=== PATIENT | male | born 1990 | race Caucasian/White ===

== ENCOUNTER → 2017-12-14 22:21 | Outpatient (CLI) | payer BC, SELFPAY | LOC: SL 22:21 | PROVIDERS: Family Provider Family Medicine; PCP Family Medicine; Visit Provider Family Medicine | DX: G47.33 Obstructive sleep apnea (adult) (pediatric) (principal) | CPT/HCPCS: 95811 ==

== ENCOUNTER 2018-11-28 19:00 | Emergency (ER) | payer OTHER, SELFPAY ==
[2018-11-28 19:01] VITALS: BP 136/94; PULSE 96; RESP 16; TEMP 36.2; O2SAT 97; BMI 37.3
--- NOTE | 2018-11-28 19:17 | US_ITS ---
STUDY: VENOUS DOPPLER ULTRASOUND - LEFT LOWER EXTREMITY REASON FOR EXAM: Male, 28 years old. Lump left lateral calf TECHNIQUE: Ultrasound evaluation of the deep vein system to include king-scale imaging and compression was performed. King-scale imaging and Doppler sonographic evaluation, including duplex spectral analysis and qualitative color flow sonography, was performed. COMPARISON: None. FINDINGS: Common Femoral Vein: Normal compression, spontaneity and augmentation. Normal color Doppler. Common Femoral Vein/Greater Saphenous Junction: Normal compression, spontaneity and augmentation. Normal color Doppler. Deep Femoral Vein: Normal compression, spontaneity and augmentation. Normal color Doppler. Femoral Proximal: Normal compression, spontaneity and augmentation. Normal color Doppler. Femoral Middle: Normal compression, spontaneity and augmentation. Normal color Doppler. Femoral Distal: Normal compression, spontaneity and augmentation. Normal color Doppler. Popliteal Vein: Normal compression, spontaneity and augmentation. Normal color Doppler. Posterior Tibial Vein: Normal compression, spontaneity and augmentation. Normal color Doppler. Peroneal Vein: Normal compression, spontaneity and augmentation. Normal color Doppler. US/Venous Duplex Imag/Limited/Uni IMPRESSION: Normal venous Doppler ultrasound of the lower extremity. Electronically Signed: Ho Prieto MD at 20:18 EST , Service support ,
--- NOTE | 2018-11-28 20:02 | ED.VISSUMM ---
- ER Visit Summary Date of Service: 11/28/18 Chief Complaint: Left calf pain History of Present Illness: The patient is a 28 M presenting for evaluation secondary to left calf pain. Patient reports that he woke up today and noticed pain in his lateral left calf and he felt as if there was a linear bulging in that area. Pain seemed to get better throughout the course of the day. Patient denies that he had any chest pain shortness of breath hemoptysis. He denies any personal history of DVT or PE. 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 Patient's PCP was concerned for the possibility DVT so he was sent to the emergency department. Physical Examination: Physical exam unremarkable except for lower extremity exam. Patient has 2+ DP and PT pulses that are bilaterally symmetric. Soft compartments throughout the legs, no evidence of swelling or palpable cord. Normal range of motion at the hip knee ankle and foot normal sensation over all dermatomes. No appreciable swelling on my exam. Test Results: Left leg duplex ultrasound is negative Emergency Department Course and Treatment: Patient presented secondary to left leg pain. Ultrasound was found to be negative. He has a normal exam, no skin changes, no muscular changes, not concern for infection injury vascular etiology or other serious problem that would require further workup. Patient was recommended conservative treatment and follow-up with primary care as needed. Disposition: Discharge Impression: 1. Left calf pain This note was generated with [employer] dictation software. It may contain incorrect words, spelling, and punctuation that were not noted in review of the chart prior to signing ED Disposition - Plan for ED Patient: Disposition: Home or Assisted Living Diagnosis: Pain of left calf Instructions: ED Leg Swelling Unilateral Referrals: Beto Ferrer MD [Primary Care Provider] - As Needed
[2018-11-28 20:03] VITALS: BP 146/89; PULSE 77; RESP 18; O2SAT 97
--- NOTE | 2018-11-28 20:05 | ED.DCSUM_ITS ---
- ER Visit Summary Date of Service: 11/28/18 Chief Complaint: Left calf pain History of Present Illness: The patient is a 28 M presenting for evaluation secondary to left calf pain. Patient reports that he woke up today and noticed pain in his lateral left calf and he felt as if there was a linear bulging in that area. Pain seemed to get better throughout the course of the day. Patient denies that he had any chest pain shortness of breath hemoptysis. He denies any personal history of DVT or PE. 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 Patient's PCP was concerned for the possibility DVT so he was sent to the emergency department. Physical Examination: Physical exam unremarkable except for lower extremity exam. Patient has 2+ DP and PT pulses that are bilaterally symmetric. Soft compartments throughout the legs, no evidence of swelling or palpable cord. Normal range of motion at the hip knee ankle and foot normal sensation over all dermatomes. No appreciable swelling on my exam. Test Results: Left leg duplex ultrasound is negative Emergency Department Course and Treatment: Patient presented secondary to left leg pain. Ultrasound was found to be negative. He has a normal exam, no skin changes, no muscular changes, not concern for infection injury vascular etiology or other serious problem that would require further workup. Patient was recommended conservative treatment and follow-up with primary care as needed. Disposition: Discharge Impression: 1. Left calf pain This note was generated with [employer] dictation software. It may contain incorrect words, spelling, and punctuation that were not noted in review of the chart prior to signing ED Disposition - Plan for ED Patient: Disposition: Home or Assisted Living Diagnosis: Pain of left calf Instructions: ED Leg Swelling Unilateral Referrals: Beto Ferrer MD [Primary Care Provider] - As Needed
== END 2018-11-28 20:10 | disposition home or self-care (01) ==
PROVIDERS: Emergency Provider Emergency Medicine; Family Provider Family Medicine; PCP Family Medicine
DX: M79.662 Pain in left lower leg (principal)
CPT/HCPCS: 93971; 99282

== ENCOUNTER 2019-01-03 01:42 | Emergency (ER) | payer OTHER, SELFPAY ==
[2019-01-03 01:43] VITALS: BP 167/96; PULSE 100; RESP 18; TEMP 36.6; O2SAT 97; BMI 37.2
[2019-01-03 01:48] VITALS: RESP 18
--- NOTE | 2019-01-03 01:55 | RAD_ITS ---
STUDY: X-RAY CHEST REASON FOR EXAM: Male, 28 years old. Cough TECHNIQUE: Frontal and lateral views of the chest. COMPARISON: None. FINDINGS: The lungs are clear and expanded. There is no demonstrated pleural abnormality. Normal size heart. Normal mediastinum and durga. Normal visualized pulmonary arteries. Normal visualized aortic arch and descending thoracic aorta. Normal visualized thoracic spine. Normal visualized ribs, clavicles, and shoulders. There is no demonstrated abnormality of the visualized soft tissue structures of the upper abdomen. RAD/Chest PA and Lateral IMPRESSION: Normal x-ray examination of the chest. Electronically Signed: Rickey Urias MD at 2:49 EST Tel , Service support ,
--- NOTE | 2019-01-03 01:56 | ED.DCSUM_ITS ---
- ER Visit Summary Date of Service: 01/03/19 Chief Complaint: [] History of Present Illness: The patient is a 28 M [] Physical Examination: [] Test Results: [] Emergency Department Course and Treatment: [] Treatment Plan: [] Disposition: [] Impression: [] This note was generated with [employer] dictation software. It may contain incorrect words, spelling, and punctuation that were not noted in review of the chart prior to signing ED Disposition - Plan for ED Patient: Referrals: Beto Ferrer MD [Primary Care Provider] -
--- NOTE | 2019-01-03 01:56 | EKG12_ITS ---
Test Reason : GEN ILLNESS Blood Pressure : / mmHG Vent. Rate : 091 BPM Atrial Rate : 091 BPM P-R Int : 178 ms QRS Dur : 098 ms QT Int : 346 ms P-R-T Axes : 045 019 026 degrees QTc Int : 425 ms Normal sinus rhythm Nonspecific T wave abnormality Abnormal ECG Confirmed by JERALD JASSO, CHRISTEL ([id number]), general expeditor GUSTAVO CORREA ([id number]) on 01/08/2019 9:06:07 AM Referred By: KIM Confirmed By:CHRISTEL MARQUES MD
--- NOTE | 2019-01-03 01:56 | ED.VIS.GEN ---
History of Present Illness Chief Complaint: General Illness Informant: Patient Narrative: Patient stated that he developed upper respiratory symptoms a few days ago. Gradual onset. He was seen by nurse practitioner and told it was viral in nature. He has been using Sudafed but none today. He had a mild cough. He felt some vertigo tonight. It resolved. He had dizziness and felt like the room was spinning. He had nausea and vomited 3 times. He felt some pressure in his chest tonight. He is unsure if that is from a bronchitis or potential pneumonia. He does not smoke cigarettes. Current severity is mild. Maximum severity is mild. Worsened by his cough. He is on no antibiotics. Timing is intermittent. Prior symptoms are no. Recent illnesses no. Past Medical History - Allergies and Home Meds Allergies/Adverse Reactions: Allergies No Known Allergies Allergy (Verified 11/28/18 19:01) Primary Care Physician: Beto Ferrer MD [Primary Care Provider] - Prior records reviewed: Yes Past Medical History: None Surgical History: no surgical history Lives: With Family Smoking Status: Never smoker Alcohol: None Drugs: None Review of Systems General: Denies: Chills, Fever, Sweats Eyes: Denies: Visual changes - bilaterally, Diplopia ENT: Reports: Rhinorrhea. Denies: Sore throat Cardiovascular: Reports: Chest pain. Denies: Palpitations Respiratory: Reports: Cough. Denies: Dyspnea, Dyspnea on exertion Gastrointestinal: Reports: Nausea, Vomiting. Denies: Abdominal pain, Diarrhea, Melena, Hematochezia Genitourinary: Denies: Dysuria, Hematuria, Frequency Musculoskeletal: Denies: Back pain, Extremity Pain Skin: Denies: Rash, Wounds Neurological: Denies: Headache, Weakness, Numbness Physical Exam Vital Signs/Narrative: Vital Signs Temp Pulse Resp BP Pulse Ox 01/03/19 01:43 98 F 100 18 167/96 H 97 Inital Vital Signs reviewed: Yes General: Well nourished, Well developed, No Acute Distress Head: Normocephalic, Atraumatic Eyes: Perrl, EOMI ENT: Moist mucous membranes, No rhinorrhea Neck: Supple, Nontender Cardiovascular: Regular rate, Regular rhythm, No murmurs Respiratory: No distress, CTA bilaterally, Chest nontender Abdomen: Soft, Nontender, Nondistended, Normal bowel sounds Back: Nontender, Normal Inspection Extremities: Nontender, No edema Skin: Normal color, No rash Neurological: Alert, Oriented x3, Cranial nerves II-XII grossly intact, Normal Strength, Normal Sensation Psychological: Normal affect, Normal Mood Diagnostic/Tx/Re-eval - EKG Initial EKG Interpretation: Sinus Rhythm, - - nonspecific T wave abnormality inversion in inferior lead III only. No other acute ischemic findings - Medical Decision Making Chest x-ray obtained shows normal heart lungs chest and mediastinum without acute infiltrate. Blood sugar within normal limits. Patient's vertigo has resolved. He will use [id number] Antivert if it comes back. I think this is likely positional vertigo. I do not think his chest discomfort is anything significant. Is likely related to his bronchitis. He will continue symptomatic management for this. He will follow-up as an outpatient. ED Disposition - Plan for ED Patient: Diagnosis: Acute bronchitis, Vertigo Instructions: ED Vertigo Unspecified Referrals: Beto Ferrer MD [Primary Care Provider] - Additional Instructions: Use [id number] Antivert as needed for vertigo
[2019-01-03 02:20] LABS: Bedside Glucose 119 mg/dL (70-110)
[2019-01-03 02:44] VITALS: BP 160/100; PULSE 99; RESP 18; O2SAT 99
== END 2019-01-03 03:00 | disposition home or self-care (01) ==
PROVIDERS: Emergency Provider Emergency Medicine; Family Provider Family Medicine; PCP Family Medicine
DX: J20.9 Acute bronchitis, unspecified (principal); R42 Dizziness and giddiness
CPT/HCPCS: 71046; 82962; 93005; 99283

== ENCOUNTER 2019-03-29 02:03 | Emergency (ER) | payer OTHER, SELFPAY ==
[2019-03-29 02:05] VITALS: BP 177/112; PULSE 72; RESP 20; TEMP 36.8; O2SAT 97; BMI 36.3
--- NOTE | 2019-03-29 02:16 | CT_ITS ---
HISTORY: THOMAS POSTERIOR SINCE 1930, NUMBNESS TO LEFT SIDE OF FACE-RESOLVED NOW, HX MIGRAINES, HTN EXAMINATION: CTA Head WO/W Contrast TECHNIQUE: Routine [place]/brain CT angiogram protocol was performed following IV contrast. 3D reconstructions were reviewed. A radiation dose optimization technique was used for this scan. IV Contrast dosage and agent: 100ML Isovue 300 COMPARISON: None FINDINGS: Initial noncontrast cranial CT performed. Normal ventricles. Prominent cerebral sulci for age. No intracranial mass, hemorrhage, or acute parenchymal abnormality seen. Posterior fossa structures appear normal. No suspicious extra-axial fluid collection. As visualized, and the mastoids and paranasal sinuses appear clear. CTA exam performed. Dominant right vertebral artery. Normal contrast filling of the anterior, middle, and posterior cerebral arteries bilaterally. No intracranial aneurysm, vascular malformation, or vascular occlusion. No significant vessel narrowing. No arterial dissection. CT/CTA Head W/WO Contrast IMPRESSION: Normal CTA brain and [place]. No aneurysm, arterial dissection, or other significant findings. Individualized dose optimization techniques were used for this CT. at 0356 Reported and signed by: Kwadwo Mcpherson MD Electronically Signed: Kwadwo Mcpherson, at 3:55 EDT Tel , Service support ,
--- NOTE | 2019-03-29 02:16 | CT_ITS ---
HISTORY: THOMAS POSTERIOR SINCE 1930, NUMBNESS TO LEFT SIDE OF FACE-RESOLVED NOW, HX MIGRAINES, HTN EXAMINATION: CTA Neck WO/W Contrast TECHNIQUE: Routine carotid CT angiogram protocol was performed without and with IV contrast. [place] criteria using the distal ICAs for comparison were used for evaluation of stenoses. 3D reconstructions were reviewed. A radiation dose optimization technique was used for this scan. IV Contrast dosage and agent: 100ML Isovue 300 COMPARISON: None FINDINGS: AORTIC ARCH AND BRANCHES: Normal anatomy, patent. RIGHT CCA: No occlusion, significant stenosis or dissection. RIGHT ICA: No occlusion, significant stenosis or dissection. LEFT CCA: No occlusion, significant stenosis or dissection. LEFT ICA: No occlusion, significant stenosis or dissection. RIGHT VERTEBRAL ARTERY: No occlusion, significant stenosis or dissection. The right vertebral artery is dominant. LEFT VERTEBRAL ARTERY: No occlusion, significant stenosis or dissection. CT/CTA Neck W/WO Contrast IMPRESSION: 1. Normal CTA bilateral carotids. No carotid dissection or other abnormality seen. 2. Bilateral patency of the vertebral arteries with the right vertebral artery dominant. Individualized dose optimization techniques were used for this CT. at 0400 Reported and signed by: Kwadwo Mcpherson MD Electronically Signed: Kwadwo Mcpherson, at 3:58 EDT Tel , Service support ,
--- NOTE | 2019-03-29 02:19 | ED.DCSUM_ITS ---
- ER Visit Summary Date of Service: 03/29/19 Chief Complaint: Headache History of Present Illness: The patient is a 29 M presenting with headache. Patient states that this has been ongoing for the past several hours. This was gradual in onset and has been intermittent. He denies trauma. He tried no medi cation at home. He has a history of headaches in the past but this is worse than usual. He has nausea with no vomiting. He denies fever. Denies other complaints. Physical Examination: Vitals are stable. Blood pressure 177/112. Patient is afebrile. Alert no acute distress. HEENT exam is unremarkable. Neck is supple. No meningismus Lungs are clear and equal bilaterally. Heart is regular rate and rhythm. Abdomen is soft nontender nondistended. Extremities are unremarkable. Skin is warm and dry. No focal neurologic deficit. Remainder of exam is unremarkable. Emergency Department Course and Treatment: Patient was given Reglan, Benadryl IV. CTA head shows normal CTA brain and [place]. No aneurysm, arterial dissection, or other significant findings. CTA neck shows normal CTA bilateral carotids. No carotid dissection or other abnormality seen. Bilateral patency of the vertebral arteries with the right vertebral artery dominant. On reevaluation patient continues to have headache but feels improved. He is given Toradol IV. Repeat blood pressure is 174/108. Patient given clonidine p.o. He states that he has been monitoring his blood pressure and trying to control it with diet. He states he has been checking it at home and it has been running normal. Repeat blood pressure is 148/94. On reevaluation, patient is feeling improved. He is advised to record his blood pressures and follow closely with his primary care physician. Patient is agreeable with this plan. Advised return to ED for worsening complaints. Disposition: Discharge home Impression: Headache This note was generated with [employer] dictation software. It may contain incorrect words, spelling, and punctuation that were not noted in review of the chart prior to signing ED Disposition - Plan for ED Patient: Instructions: ED Headache Tension Referrals: Beto Ferrer MD [Primary Care Provider] -
[2019-03-29] MEDS: DiphenhydrAMINE 50 MG/ML Syringe 25 MG IV (02:23)
[2019-03-29] MEDS: Metoclopramide 10 MG/2 ML Vial 5 MG IV (02:23)
--- NOTE | 2019-03-29 04:20 | ED.DEP ---
ED Disposition - Plan for ED Patient: Instructions: ED Headache Tension Referrals: Beto Ferrer MD [Primary Care Provider] -
[2019-03-29] MEDS: Ketorolac 30 MG/ML Syringe IV (04:28)
[2019-03-29 04:40] VITALS: BP 174/108; PULSE 79; RESP 18; O2SAT 97
[2019-03-29] MEDS: cloNIDine HCl 0.1 MG Tablet 0.2 MG PO (04:46)
[2019-03-29 05:26] VITALS: BP 148/96
[2019-03-29 05:38] VITALS: BP 148/96; PULSE 79; RESP 16; O2SAT 96
== END 2019-03-29 05:49 | disposition home or self-care (01) ==
PROVIDERS: Emergency Provider Emergency Medicine; Family Provider Family Medicine; PCP Family Medicine
DX: R51 Headache (principal)
CPT/HCPCS: 70496; 70498; 96374; 96375; 99283; Q9967; A4216

== ENCOUNTER 2020-05-10 20:40 | Emergency (ER) | payer OTHER, SELFPAY ==
[2020-05-10 20:41] VITALS: BP 150/95; PULSE 64; RESP 15; TEMP 36; O2SAT 98; BMI 36.1
--- NOTE | 2020-05-10 20:57 | ED.VIS.GEN ---
History of Present Illness Chief Complaint: Bite Informant: Patient Narrative: The 10-year-old male presents with tick attached to the left side of his neck and his fernandez. He states that only been there for a few hours today it was not noticed earlier. He does not have any symptoms that are systemic. He has no rash. He states it is not painful. Past Medical History - Allergies and Home Meds Allergies/Adverse Reactions: Allergies No Known Allergies Allergy (Verified 05/10/20 20:43) Primary Care Physician: Beto Ferrer MD [Primary Care Provider] - Prior records reviewed: Yes Surgical History: no surgical history Lives: With Family Smoking Status: Never smoker Alcohol: None Drugs: None Review of Systems General: Denies: Chills, Fever, Sweats Eyes: Denies: Visual changes - bilaterally, Diplopia ENT: Denies: Rhinorrhea, Sore throat Cardiovascular: Denies: Chest pain, Palpitations Gastrointestinal: Denies: Abdominal pain, Nausea, Vomiting, Diarrhea, Melena, Hematochezia Musculoskeletal: Denies: Back pain, Extremity Pain Skin: Reports: - - Tick attached to the left side of neck Neurological: Denies: Headache Allergy: Denies: Uticaria Physical Exam Vital Signs/Narrative: Vital Signs Temp Pulse Resp BP Pulse Ox 05/10/20 20:41 96.8 F L 64 15 150/95 H 98 Inital Vital Signs reviewed: Yes General: Well nourished, Well developed, No Acute Distress Head: Normocephalic, Atraumatic Eyes: Perrl Cardiovascular: Regular rate, Regular rhythm Respiratory: No distress, CTA bilaterally Skin: - - Small tick attached to left side of neck in fernandez line. No surrounding erythema or induration. Nontender to palpation. Neurological: Alert, Oriented x3 Psychological: Normal affect Diagnostic/Tx/Re-eval - Medical Decision Making Patient presents with a tick attached to his neck. It is only been there for a few hours. He does not need antibiotics. Seizure note: Forceps were used to grasp the tick at its attachment to the neck/skin. Gentle pressure was applied and tick was removed in its entirety. Area was then cleaned by nursing staff. There is no bleeding. Patient tolerated procedure well ED Disposition - Plan for ED Patient: Disposition: Home or Assisted Living Diagnosis: Tick bite Instructions: ED Facts Tick, ED Bite Tick No Abx Tx Referrals: Beto Ferrer MD [Primary Care Provider] -
== END 2020-05-10 21:14 | disposition home or self-care (01) ==
PROVIDERS: Emergency Provider Student in an Organized Health Care Education/Training Program; PCP Family Medicine
DX: S10.96XA Insect bite of unspecified part of neck, initial encounter (principal); W57.XXXA Bitten or stung by nonvenomous insect and other nonvenomous arthropods, initial encounter; Y93.9 Activity, unspecified; Y92.9 Unspecified place or not applicable
CPT/HCPCS: 99282

== ENCOUNTER 2020-05-17 18:29 | Emergency (ER) | payer OTHER, SELFPAY ==
[2020-05-17 18:31] VITALS: BP 172/92; PULSE 71; RESP 15; TEMP 36.6; O2SAT 97; BMI 37.3
--- NOTE | 2020-05-17 18:41 | ED.DCSUM_ITS ---
- ER Visit Summary Date of Service: 05/17/20 Chief Complaint: [Injury to left foot] History of Present Illness: The patient is a 30 M [presents to the emergency department complaint of injury to his left foot. Patient states that he dropped a sledgehammer on it while at work. Patient states that he supposed to wear steel toed shoes but did not. He does not want to file this under workman's comp. Patient states that he thought it was getting better but then started having more pain over the last couple of days. His mother thought the toe looked red and swollen and was concerned about infection so advised and seek treatment. He denies any fevers.] Physical Examination: [HEENT-PERRLA, EOMI. Cranial nerves II through XII grossly intact. TMs clear. Mucous membranes moist. No adenopathy. Cardiovascular-regular rate and rhythm without murmur or ectopy Lungs-clear to auscultation, chest wall stable without crepitus or subcu emphysema Abdomen-normoactive bowel sounds, soft, nontender, no rebound or rigidity, no peritoneal signs. Extremities-intact ?4, normal range of motion, normal pulses. Left great toe- patient does have some soft tissue swelling noted some erythema the skin of the toe. He is got some dried blood at the distal edge of the nail where it meets the skin. The nail itself appears pale and appears to be somewhat loose on the nailbed. Diffuse tenderness over the distal phalanx.] Test Results: [X-rays of the left foot obtained showed no fractures or dislocations as interpreted by myself.] Emergency Department Course and Treatment: [Was started on Keflex and Bactrim p.o.] Treatment Plan: [We will be treated with Keflex and Bactrim for his cellulitis of the left great toe. Patient advised to follow-up with primary care physician for wound check in 3 to 5 days. Patient advised to return if increasing pain, redness, swelling, or condition should worsen anyway.] Disposition: [Discharged home in stable condition] Impression: [Contusion left great toe Cellulitis left great toe] This note was generated with [employer] dictation software. It may contain incorrect words, spelling, and punctuation that were not noted in review of the chart prior to signing ED Disposition - Plan for ED Patient: Referrals: Beto Ferrer MD [Primary Care Provider] -
--- NOTE | 2020-05-17 19:18 | RAD_ITS ---
STUDY: X-RAY - LEFT FOOT CLINICAL: Male, 30 years old. Sledgehammer dropped on left great toe 5-6 days ago. Pain and bruising. TECHNIQUE: 3 view(s) of the foot. COMPARISON: None. FINDINGS: Normal talus, calcaneus, and tarsal bones. Normal visualized subtalar, talonavicular, calcaneocuboid, tarsal and tarsometatarsal articulations. Normal metatarsi. Normal metatarsophalangeal joint of the great toe. Normal tibial and fibular sesamoid bones. Normal interphalangeal joint of the great toe. Normal second through fifth metatarsophalangeal joints. Normal interphalangeal joints and phalanges of the lesser toes. There is 2 mm linear bony density adjacent to the distal phalanx of the great toe. There is soft tissue edema. RAD/Foot min 3 Views IMPRESSION: 2 mm new or old avulsion fracture from the distal phalanx of the great toe, soft tissue edema Electronically Signed: Serafin Fung, at 19:53 EDT Tel , Service support ,
--- NOTE | 2020-05-17 19:45 | ED.DEP ---
ED Disposition - Plan for ED Patient: Instructions: ED FOOT CONTUSION, ED Cellulitis Prescriptions: Smz/Tmp Ds [Bactrim Ds] 1 tab PO BID #20 tab Prescription Printed Cephalexin [Keflex] 500 mg PO Q6 #40 cap Prescription Printed Referrals: Beto Ferrer MD [Primary Care Provider] - 3-5 Days
[2020-05-17] MEDS: Cephalexin 250 MG Capsule 500 MG PO (19:53)
[2020-05-17] MEDS: Smz/Tmp Ds Tablet 1 TABLET PO (19:53)
== END 2020-05-17 19:56 | disposition home or self-care (01) ==
LOC: ED 19:03
PROVIDERS: Emergency Provider Emergency Medicine; PCP Family Medicine
DX: S90.112A Contusion of left great toe without damage to nail, initial encounter (principal); W22.8XXA Striking against or struck by other objects, initial encounter; Y93.9 Activity, unspecified; Y92.9 Unspecified place or not applicable; Y99.0 Civilian activity done for income or pay; L03.032 Cellulitis of left toe
CPT/HCPCS: 73630; 99283

== ENCOUNTER 2020-07-03 14:13 | Emergency (ER) | payer OTHER, SELFPAY ==
[2020-07-03 14:14] VITALS: BP 157/94; PULSE 90; RESP 16; TEMP 36.4; O2SAT 98; BMI 36.8
--- NOTE | 2020-07-03 14:29 | ED.DCSUM_ITS ---
History of Present Illness Informant: Patient, Family Onset: Weeks - 1week Context: Gradual Onset Timing: Continuous Quality: bump Location: scalp Current Severity: Mild Maximum Severity: Mild Worsened by: nothing Relieved by: nothing Associated Symptoms: denies Narrative: 30-year-old male presents with concern he is a tick stuck in his scalp. He states that a week ago he was outside working came inside and noticed the tick was stuck in his head so he pulled it off he had thought he had remove the entire tick but today he noticed a spot in that same area where he feels the tick is still in place. Patient has not had any swelling of his hand rash or fevers he has no constitutional symptoms he has no upper respiratory symptoms or vomiting or diarrhea rest review of systems negative Prior similar symptoms: No Recent Illness/Hospitalization: No <Romie Tomlinson - Last Filed: 07/03/20 14:48> <Adams Johnson - Last Filed: 07/03/20 15:02> Chief Complaint: Foreign Body Past Medical History Prior records reviewed: Yes Past Medical History: None Surgical History: no surgical history Lives: With Family Smoking Status: Never smoker Alcohol: Occasional Drugs: None <Romie Tomlinson - Last Filed: 07/03/20 14:48> <Adams Johnson - Last Filed: 07/03/20 15:02> - Allergies and Home Meds Allergies/Adverse Reactions: Allergies No Known Allergies Allergy (Verified 07/03/20 14:16) Primary Care Physician: Beto Ferrer MD [Primary Care Provider] - Review of Systems General: Denies: Chills, Fever, Sweats Eyes: Denies: Visual changes - bilaterally, Diplopia ENT: Denies: Rhinorrhea, Sore throat Cardiovascular: Denies: Chest pain, Palpitations Respiratory: Denies: Dyspnea, Cough, Dyspnea on exertion Gastrointestinal: Denies: Abdominal pain, Nausea, Vomiting, Diarrhea, Melena, Hematochezia Genitourinary: Denies: Dysuria, Hematuria, Frequency Musculoskeletal: Denies: Back pain, Extremity Pain Skin: Reports: Wounds. Denies: Rash, Abscess Neurological: Denies: Headache, Weakness, Numbness <Romie Tomlinson - Last Filed: 07/03/20 14:48> Physical Exam Vital Signs/Narrative: Vital Signs Temp Pulse Resp BP Pulse Ox 07/03/20 14:14 97.6 F L 90 16 157/94 H 98 Inital Vital Signs reviewed: Yes General: Well nourished, Well developed, No Acute Distress Head: Normocephalic, Atraumatic Eyes: Perrl, EOMI ENT: Moist mucous membranes, No rhinorrhea Neck: Supple, Nontender Cardiovascular: Regular rate, Regular rhythm, No murmurs Respiratory: No distress, CTA bilaterally, Chest nontender Abdomen: Soft, Nontender, Nondistended, Normal bowel sounds Back: Nontender, Normal Inspection Extremities: Nontender, No edema Skin: Normal color, No rash, No Trauma, - - Patient has 1 spot on the top of his head occipital area that is a abrasion versus a possible tick there is no surrounding signs of swelling redness or infection Neurological: Alert, Oriented x3, Cranial nerves II-XII grossly intact, Normal Strength, Normal Sensation Psychological: Normal affect, Normal Mood <Romie Tomlinson - Last Filed: 07/03/20 14:48> Vital Signs/Narrative: Vital Signs Temp Pulse Resp BP Pulse Ox 07/03/20 14:54 81 18 152/91 H 96 07/03/20 14:14 97.6 F L 90 16 157/94 H 98 <Adams Johsnon - Last Filed: 07/03/20 15:02> Diagnostic/Tx/Re-eval - Medical Decision Making The area that the patient was concerned was a tick was removed easily there is possibly a small amount of the tick remaining in the scab but no further areas left in the scalp there are no signs of infection patient has no constitutional symptoms he has no symptoms of Lyme disease that is his concern at this time will place on doxycycline and have him follow-up with his doctor in 2 days <Romie Tomlinson - Last Filed: 07/03/20 14:48> - Medical Decision Making Patient was seen with me. I did a [id number] examination with the patient. Patient presents for possible tick bite to his scalp. Patient states he is unsure if he has a tick in his scalp. Patient states he has had several ticks removed from his scalp over the past year. Patient denies any fevers or chills. Patient denies any redness or swelling. Patient denies any headaches. Vital signs are stable. Patient is afebrile. Patient is in no acute distress. Skin is warm and dry. There is no foreign body noted. There is no erythema noted. There is no discharge or drainage. There is no bleeding noted. There is minimal tenderness. Cranial nerves II through XII are intact. There are no focal motor or sensory deficits noted. The possible foreign body was removed. There is no foreign body noted in the scalp at this time. Patient was instructed to keep the area clean and dry. Patient was instructed to follow-up with his primary care physician in 5 to 7 days. Patient understood and was agreeable with the plan. All questions were answered. <Adams Johnson - Last Filed: 07/03/20 15:02> ED Disposition <Romie Tomlinson - Last Filed: 07/03/20 14:48> <Adams Johnson - Last Filed: 07/03/20 15:02> - Plan for ED Patient: Disposition: Home or Assisted Living Diagnosis: Lesion of skin of scalp Prescriptions: Doxycycline 100 mg PO BID #10 cap Transmission Status: Received by [id number] Referrals: Beto Ferrer MD [Primary Care Provider] -
[2020-07-03 14:54] VITALS: BP 152/91; PULSE 81; RESP 18; O2SAT 96
== END 2020-07-03 14:58 | disposition home or self-care (01) ==
PROVIDERS: Emergency Provider Physician Assistant Medical; PCP Family Medicine
DX: L98.9 Disorder of the skin and subcutaneous tissue, unspecified (principal)
CPT/HCPCS: 99282

== ENCOUNTER 2020-08-06 12:08 | Emergency (ER) | payer OTHER, SELFPAY ==
[2020-08-06 12:09] VITALS: BP 158/93; PULSE 90; RESP 16; TEMP 36.8; O2SAT 98; BMI 36.2
[2020-08-06 12:12] VITALS: BP 158/93; PULSE 90; RESP 16; TEMP 36.8; O2SAT 98
[2020-08-06 12:55] LABS: Absolute Lymphocyte Count 1.98 X10^3/uL (0.83-4.51); Absolute Neutrophil Count 4.2 X10^3/uL (2.0-7.7); Basophil# 0.06 X10^3/uL; Basophil% 0.9 % (0-1); Eosinophil# 0.14 X10^3/uL; Hematocrit 46.4 % (40-54); Hemoglobin 16.2 g/dL (13.0-16.5); Lymphocyte # 1.98 X10^3/ul (4.0); Lymphocyte % 28.3 % (19-41); Mean Corp Hgb Conc 34.9 g/dL (32-36); Mean Corpuscular Hgb 28.6 pg (27.0-32.0); Mean Platelet Vol. 8.5 fl (6.2-12.0); Monocyte# 0.56 X10^3/uL; NRBC Flagged by Analyzer 0 % (0-5); Neutrophil % 59.9 % (47-70); Platelet Count 240 K/mm3 (150-450); RBC Distribution Width CV 12.7 % (11.6-14.6); RBC Distribution Width SD 37.7 fl (35.1-43.9); Red Blood Count 5.66 M/mm3 (4.6-6.2)
[2020-08-06 13:09] LABS: Anion Gap 8 (5-15); BUN 18 mg/dL (7-18); BUN/Creat Ratio 18.7 RATIO (10-20); Calcium,Total 8.6 mg/dL (8.5-10.1); Chloride 106 mmol/L (98-107); Creatinine, Serum 0.96 mg/dL (0.70-1.30); EST Glomerular Filtration Rate 99 mL/min (>60); Est Glom Filt Rate - Afr Amer 120 mL/min (>60); Estimated Creatinine Clearance 122.01 ml/min; Glucose 114 mg/dL (74-106); Potassium 3.5 mmol/L (3.5-5.1); Sodium Level 140 mmol/L (136-145)
--- NOTE | 2020-08-06 13:10 | RAD_ITS ---
STUDY: X-RAY CHEST REASON FOR EXAM: Male, 30 years old. DYSPNEA, COUGH, N/V, CHEST DISCOMFORT. ILL FOR PAST 2 WEEKS, HAD FEVER TECHNIQUE: Single AP portable view of the chest. COMPARISON: 01/13/2019. FINDINGS: Cardiac silhouette unremarkable. Pulmonary vascularity unremarkable. Aorta unremarkable. No focal patchy airspace opacities. No pleural effusions. Upper abdomen unremarkable. Osseous structures intact. No pneumothorax. RAD/Chest 1 View (Portable) IMPRESSION: No acute cardiopulmonary findings Electronically Signed: Adams Brothers DO at 13:25 EDT Tel , Service support ,
[2020-08-06 13:12] VITALS: BP 137/90; PULSE 82; RESP 18; TEMP 36.9; O2SAT 97
[2020-08-06 13:30] LABS: D-Dimer Quantitative (DVT/PE) 0.31 FEU/ug/m (0.27-0.49)
[2020-08-06 13:35] VITALS: O2SAT 97
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
--- NOTE | 2020-08-06 13:47 | ED.DEP ---
ED Disposition - Plan for ED Patient: Instructions: ED Upper Resp Infec Abx Tx Prescriptions: Doxycycline 100 mg PO BID #20 cap Prescription Printed Albuterol Inhaler [Ventolin Hfa] 2 puff INHALATION Q4H PRN PRN #1 inhaler PRN Reason: Wheezing Prescription Printed Referrals: Beto Ferrer MD [Primary Care Provider] - 5-7 Days
[2020-08-06 13:55] VITALS: BP 137/90; PULSE 78; RESP 18; O2SAT 95
== END 2020-08-06 14:01 | disposition home or self-care (01) ==
LOC: ED 13:08
PROVIDERS: Emergency Provider Emergency Medicine; PCP Family Medicine
DX: J06.9 Acute upper respiratory infection, unspecified (principal); R06.00 Dyspnea, unspecified
CPT/HCPCS: 71045; 80048; 85025; 85379; 87040; 87635; 99283; A4216; U0003

== ENCOUNTER 2022-05-02 03:23 | Emergency (ER) | payer OTHER, SELFPAY ==
[2022-05-02 03:24] VITALS: BP 151/104; PULSE 136; RESP 18; TEMP 36.6; O2SAT 99; BMI 41.4
--- NOTE | 2022-05-02 04:05 | ED.VIS.GI ---
HPI HPI - GI History of Present Illness Chief Complaint: Nausea/Vomiting/Diarrhea Informant: patient Abdominal Pain/Flank Pain Onset: Yesterday (Around 10-12 hours ago) Context: Gradual Onset Timing: Continuous and Waxes and wanes Quality: Cramping Location: - (Across lower abdomen mostly and some in periumbilical area) Current Severity: Mild Maximum Severity: Moderate Worsened by: - (Vomiting) Relieved by: Nothing Nausea/Vomiting/Emesis GI Symptom: Positive for Nausea and Vomiting Quality: Positive for Nonbilious; Negative for Blood streaks, Coffee ground or Hematemesis Severity: Severe Diarrhea/Melena/Hematochezia GI Symptom: Positive for Diarrhea; Negative for Melena or Hematochezia Stool Quality: Positive for Watery Severity: Severe Associated Symptoms Associated Symptoms: Positive for Dysuria; Negative for Frequency, Hematuria or Urgency Narrative Narrative: Patient has been having significant vomiting and watery nonbloody diarrhea for the past 10 or 12 hours, having some chills, fatigue, abdominal and back soreness from all of the vomiting in addition to some cramping, he states this started an hour or 2 after eating a skillet at a [employer] in the [facility]. No recent travel out of the region, has not eaten at an ice cream parlor or any other place with a reported outbreak of Listeria, which the CDC has reported in 11 states recently. He has a mild cough that is improved but has been there for 3 months that he feels is unrelated and no worse in the past day. Having trouble keeping fluids down. [facility] Medical History Carpal tunnel syndrome Dyslipidemia Hypertension Home Medications omega-3 fatty acids 1,000 mg capsule 1,000 mg PO QDAY 12/11/17 [History Last Taken Unknown] metoprolol tartrate 25 mg tablet 25 mg PO DAILY 07/03/20 [History Last Taken Unknown] albuterol sulfate 90 mcg/actuation aerosol inhaler 2 puff inhalation Q4H PRN PRN Wheezing ##1 08/06/20 [Rx Last Taken Unknown] dicyclomine 10 mg capsule 20 mg PO Q6H PRN PRN abdominal discomfort #20 CAPSULES 05/02/22 [Rx Last Taken Unknown] ondansetron 4 mg disintegrating tablet 8 mg PO Q8H PRN PRN Nausea #20 tabs 05/02/22 [Rx Last Taken Unknown] Allergy/AdvReac Type Severity Reaction Status Date / Time No Known Allergies Allergy Verified 05/02/22 03:26 Family History (Updated 12/11/17 @ 09:13 by Teresa Borrego) Grandmother Hypertension Diabetes Alzheimers disease Grandfather CAD (coronary artery disease) Hypertension Diabetes Grandfather CVA (cerebral vascular accident) Hypertension Diabetes Father Diabetes Hypertension psychiatry Thyroid disorder Mother Hypertension Thyroid disorder Surgical History (Updated 01/03/19 @ 02:[address] Neymar Queen MD) History of tonsillectomy Social History Smoking Status: Never smoker second hand exposure: No alcohol intake: never substance use type: does not use caffeine: No what type of physical activity do you participate in: none ROS ROS ED Constitutional Constitutional ED: Reports body ache(s), chills and malaise; Denies fever(s) Eyes Eyes: Denies change in vision or diplopia ENT ENT ED: Denies rhinorrhea or sore throat Cardiovascular Cardiovascular: Denies chest pain or palpitations Respiratory/Chest Respiratory/Chest: Denies cough or dyspnea Gastrointestinal Gastrointestinal: Reports as per HPI, abdominal pain, diarrhea, nausea and vomiting Genitourinary Genitourinary ED: Denies dysuria or hematuria Musculoskeletal Musculoskeletal: Denies back pain or neck pain Integumentary Denies abscess or rash Neurologic Neurologic: Denies headache(s), paresthesias or weakness Psychiatric Psychiatric: Denies anxiety or suicidal thoughts EXAM Physical Exam Const Vital Signs: 05/02/22 03:24 Temperature 97.9 F Temperature Source Temporal Pulse Rate 136 H Respiratory Rate 18 Blood Pressure 151/104 H Blood Pressure Mean 119 Pulse Ox 99 Oxygen Delivery Method Room Air Positive well nourished, well developed and obese General Appearance ED: well developed and NAD Nutritional Appearance: obese HEENT Reports moist mucous membranes normocephalic and atraumatic Eyes PERRL and EOMs intact bilaterally Neck full ROM and supple Resp normal respiratory effort and clear to auscultation bilaterally Cardio regular rate, regular rhythm and no murmurs Rate: tachycardic GI non-distended GI Narrative: Mild diffuse tenderness, no guarding or rebound tenderness. Auscultation: normoactive bowel sounds Palpation: soft Back/Spine no CVA tenderness General Back: other FROM Extremity normal to inspection General Extremety ED: Negative for edema, pulses abnormal or tenderness General Extremity: Negative for edema or pulses abnormal Neuro oriented x3, CN's II-XII intact bilaterally, no sensory deficits noted and gait normal Sensorium / Orientation: awake and alert Motor Exam: strength 5/5 throughout Skin no rashes or lesions noted and no wounds MDM MDM MDM Narrative Medical decision making narrative: Work-up labs noted. Total bilirubin just barely elevated as is his AST and ALT, this is of undetermined significance with regards to these acute symptoms, and I am not concerned enough to do more testing emergently at this time. He can follow-up for this, especially if symptoms persist. We discussed the possibilities of foodborne illness, he is healthy and does not have a suppressed immune system, and he was not able to provide diarrhea here. He does not have symptoms of invasive bacterial infection although I am not able to rule that out definitively, but if he has symptoms for less than 1 week and they resolve on their own supportive care would be advised anyway. Especially if they persist longer than that he should follow-up, we discussed reasons to return but after IV fluids, Toradol, Bentyl, and Zofran he feels much better his abdomen is benign and he is tolerating oral fluids. Lab Data Attestation: I reviewed the patient's lab results. Labs: Laboratory Results - last 24 hr 05/02/22 05/02/22 05/02/22 04:20 04:20 04:20 WBC 11.4 H RBC 6.07 Hgb 17.2 H Hct 50.6 MCV 83.4 MCH 28.3 MCHC 34.0 RDW Std Deviation 40.8 RDW Coeff of Lucy 13.7 Plt Count 204 MPV 8.5 Immature Gran % (Auto) 0.800 Neut % (Auto) 87.0 H Lymph % (Auto) 5.0 L [place] % (Auto) 6.1 Eos % (Auto) 0.8 Baso % (Auto) 0.3 Absolute Neuts (auto) 10.0 H Absolute Lymphs (auto) 0.57 L Nucleated RBC % 0 Differential Comment SCANNED Sodium 140 Potassium 4.2 Chloride 105 Carbon Dioxide 29.0 Anion Gap 6 BUN 14 Creatinine 1.19 Estim Creat Clear Calc 96.67 Est GFR (MDRD) Af Amer 92 Est GFR (MDRD) Non-Af 76 BUN/Creatinine Ratio 11.8 Glucose 134 H Calcium 9.2 Total Bilirubin 1.20 H AST 47 H ALT 108 H Alkaline Phosphatase 66 Total Protein 7.4 Albumin 3.8 Globulin 3.6 Albumin/Globulin Ratio 1.1 Urine Color Leticia Urine Clarity Clear Urine pH 7.0 Ur Specific [place] 1.010 Urine Protein 30 H Urine Glucose (UA) Normal Urine Ketones 5 H Urine Occult Blood 10 H Urine Nitrite Negative Urine Bilirubin Negative Urine Urobilinogen 1 H Ur Leukocyte Esterase 25 H Urine RBC 0-5 SEEN Urine WBC 0-5 SEEN Ur Squamous Epith Cells 0 SEEN Urine Bacteria 1+ Urine Mucus 0 SEEN Discharge Plan Triage Chief Complaint: Nausea/Vomiting/Diarrhea ED Provider: Berry Perez Dx/Rx/DC Orders Clinical Impression: Gastroenteritis, Abdominal pain, diffuse Instructions: ED Food Poison Or Gastroenteritis Prescriptions: New dicyclomine 10 MG capsule 20 mg PO Q6H PRN PRN (Reason: abdominal discomfort) Qty: 20 0RF ondansetron [ondansetron] 4 MG tablet 8 mg PO Q8H PRN PRN (Reason: Nausea) Qty: 20 0RF No Action omega-3 fatty acids 1,000 mg capsule 1,000 mg PO QDAY metoprolol tartrate 25 MG tablet 25 mg PO DAILY albuterol sulfate 1 INHALER inhaler 2 puff inhalation Q4H PRN PRN (Reason: Wheezing) Qty: 1 0RF Primary Care Provider: Beto Ferrer Referrals: Beto Ferrer MD [Primary Care Provider] - 3-5 Days if not improving Disposition Disposition: Home, Self Care
[2022-05-02 04:31] LABS: Mucous, Urine 0 SEEN /hpf (<or=2+); Squamous Epithelial Cells - UA 0 SEEN /hpf (0-5)
[2022-05-02] MEDS: Ketorolac 30 MG/ML Syringe IV (04:32)
[2022-05-02] MEDS: Metoclopramide 10 MG/2 ML Vial IV (04:33)
[2022-05-02] MEDS: 0.9% Normal Saline 1,000 ML 1000 ML IV (04:33)
[2022-05-02] MEDS: Dicyclomine 10 MG Capsule 20 MG PO (04:33)
[2022-05-02 04:41] LABS: Absolute Lymphocyte Count 0.57 X10^3/uL (0.83-4.51); Basophil# 0.04 X10^3/uL; Basophil% 0.3 % (0-1); Eosinophil# 0.09 X10^3/uL; Eosinophils% 0.8 % (0-5); Hematocrit 50.6 % (40-54); Hemoglobin 17.2 g/dL (13.0-16.5); Lymphocyte # 0.57 X10^3/ul (0.83-4.51); Mean Corpuscular Hgb 28.3 pg (27.0-32.0); Mean Corpuscular Volume 83.4 fL (80-94); Mean Platelet Vol. 8.5 fl (6.2-12.0); Monocyte% 6.1 % (0-10); NRBC Flagged by Analyzer 0 % (0-5); Neutrophil # 9.95 X10^3/uL (2.7-7.7); POSITIVE DIFFERENTIAL YES; Platelet Count 204 K/mm3 (150-450); RBC Distribution Width CV 13.7 % (11.6-14.6); RBC Distribution Width SD 40.8 fl (35.1-43.9); Red Blood Count 6.07 M/mm3 (4.6-6.2); White Blood Count 11.4 K/mm3 (4.4-11.0)
[2022-05-02 04:45] LABS: Color, Urine Amber (Yellow); Glucose, Dipstick Normal (Normal); Ketone-Dipstick 5 mg/dl (Negative); Leukocyte Esterase-Dipstick 25 /ul (Negative); Nitrite-Dipstick Negative (Negative); Occult Blood-Urine 10 /ul (Negative); Protein-Dipstick 30 mg/dl (Negative); Urine Bilirubin Dipstick Negative (Negative); Urine Clarity Clear (Clear); Urine Urobilinogen 1 mg/dl (Normal)
[2022-05-02 04:50] LABS: ALB/GLOB Ratio 1.1 RATIO (0.9-2.4); AST(SGOT) 47 U/L (15-37); Alanine Aminotransfer ALT/SGPT 108 U/L (16-61); Albumin, Serum 3.8 g/dL (3.2-5.0); Alkaline Phosphatase 66 U/L (45-117); Anion Gap 6 (5-15); BUN 14 mg/dL (7-18); BUN/Creat Ratio 11.8 RATIO (10-20); Calcium,Total 9.2 mg/dL (8.5-10.1); Chloride 105 mmol/L (98-107); Creatinine, Serum 1.19 mg/dL (0.70-1.30); EST Glomerular Filtration Rate 76 mL/min (>60); Est Glom Filt Rate - Afr Amer 92 mL/min (>60); Estimated Creatinine Clearance 96.67 ml/min; Globulin 3.6 g/dL (2.2-4.2); Glucose 134 mg/dL (74-106); Potassium 4.2 mmol/L (3.5-5.1); Protein, Total 7.4 g/dL (6.4-8.2); Sodium Level 140 mmol/L (136-145)
[2022-05-02 04:53] LABS: Bacteria 1+ /hpf (None Seen); Red Blood Cells-Urine 0-5 SEEN /hpf (0-5); White Blood Cells 0-5 SEEN /hpf (0-5)
[2022-05-02 05:06] LABS: Differential Indicated SCAN CRITERIA MET
[2022-05-02 05:17] LABS: Differential Comment SCANNED
[2022-05-02 05:58] VITALS: BP 146/96; PULSE 100; RESP 19
== END 2022-05-02 06:00 | disposition home or self-care (01) ==
PROVIDERS: Emergency Provider Emergency Medicine; PCP Family Medicine; Visit Provider Emergency Medicine
DX: K52.9 Noninfective gastroenteritis and colitis, unspecified (principal); Z68.41 Body mass index [BMI] 40.0-44.9, adult; I10 Essential (primary) hypertension; E78.5 Hyperlipidemia, unspecified; E66.9 Obesity, unspecified; Z79.899 Other long term (current) drug therapy
CPT/HCPCS: 80053; 81001; 85025; 96361; 96374; 96375; 99284; J7030; A4216

== ENCOUNTER 2023-02-16 16:40 | Emergency (ER) | payer OTHER, SELFPAY ==
--- NOTE | 2023-02-16 16:45 | ED.RN ---
pt got a call when getting triaged, states he was leaving and he will be back later
== END 2023-02-16 16:44 | disposition left against medical advice (07) ==
LOC: ED 16:44
PROVIDERS: PCP Family Medicine
DX: Z53.21 Procedure and treatment not carried out due to patient leaving prior to being seen by health care provider (principal)

== ENCOUNTER 2024-02-13 09:11 | Emergency (ER) | payer OTHER, SELFPAY ==
[2024-02-13 09:12] VITALS: BP 160/111; PULSE 98; RESP 16; TEMP 36.2; O2SAT 97; BMI 44.1
--- NOTE | 2024-02-13 09:24 | EX.ED.DYSGE1 ---
HPI History of Present Illness Chief Complaint: Lower Extremity Injury Informant: patient and EMS Narrative Narrative: 33-year-old male presenting to the emergency room with left foot and ankle injury. Patient states he was on his way into work when he left his camper. He slipped on the grass causing inversion injury to the left ankle and foot. He states he felt a pop. Is difficult to hear him to bear any weight so he called EMS. He denies any other injuries from the fall. PFSH PFSH Medical History Carpal tunnel syndrome Dyslipidemia Hypertension Home Medications omega-3 fatty acids 1,000 mg capsule 1,000 mg PO QDAY 12/11/17 [History Last Taken Unknown] metoprolol tartrate 25 mg tablet 25 mg PO DAILY 07/03/20 [History Last Taken Unknown] albuterol sulfate 90 mcg/actuation aerosol inhaler 2 puff inhalation Q4H PRN PRN Wheezing ##1 08/06/20 [Rx Last Taken Unknown] dicyclomine 10 mg capsule 20 mg (2 x 10 mg) PO Q6H PRN PRN abdominal discomfort #20 CAPSULES 05/02/22 [Rx Last Taken Unknown] ondansetron 4 mg disintegrating tablet 8 mg (2 x 4 mg) PO Q8H PRN PRN Nausea #20 tabs 05/02/22 [Rx Last Taken Unknown] Allergy/AdvReac Type Severity Reaction Status Date / Time No Known Allergies Allergy Verified 05/02/22 03:26 Family History Grandmother Hypertension Diabetes Alzheimers disease Grandfather CAD (coronary artery disease) Hypertension Diabetes Grandfather CVA (cerebral vascular accident) Hypertension Diabetes Father Diabetes Hypertension psychiatry Thyroid disorder Mother Hypertension Thyroid disorder Surgical History History of tonsillectomy Social History Smoking Status: Never smoker second hand exposure: No alcohol intake: never substance use type: does not use caffeine: No what type of physical activity do you participate in: none ROS ROS ED Constitutional Constitutional ED: Denies chills, fever(s) or weight loss Eyes Eyes: Denies change in vision or diplopia ENT ENT ED: Denies ear pain, rhinorrhea or sore throat Cardiovascular Cardiovascular: Denies chest pain, orthopnea, palpitations or racing heartbeat Respiratory/Chest Respiratory/Chest: Denies cough, dyspnea or orthopnea Gastrointestinal Gastrointestinal: Denies abdominal pain, diarrhea, nausea or vomiting Genitourinary Genitourinary ED: Denies dysuria, hematuria or urinary frequency Musculoskeletal Musculoskeletal: Denies arthralgias, back pain, myalgias or neck pain Integumentary Reports other Details: Left foot ankle pain ; Denies abscess or rash Neurologic Neurologic: Denies headache(s) or weakness Psychiatric Psychiatric: Denies anxiety, depression, suicidal ideation or suicidal thoughts Endocrine Endocrinology: Denies polydipsia, polyphagia or polyuria Allergic/Immunologic Allergic/Immunologic ED: Denies mouth swelling, tongue swelling or urticaria EXAM Physical Exam Const Vital Signs: 02/13/24 09:12 Temperature 97.1 F L Temperature Source Temporal Pulse Rate 98 Respiratory Rate 16 Blood Pressure 160/111 H Blood Pressure Mean 127 Pulse Ox 97 Oxygen Delivery Method Room Air Positive well nourished, well developed and obese General Appearance ED: well developed Nutritional Appearance: obese HEENT Reports normocephalic, head/scalp atraumatic and moist mucous membranes Eyes PERRL and EOMs intact bilaterally Neck no lymphadenopathy, supple and no JVD Resp normal respiratory effort and clear to auscultation bilaterally Cardio regular rate, regular rhythm and no murmurs GI normal to inspection, nondistended, normoactive bowel sounds and non-tender Palpation: soft Back/Spine no CVA tenderness and normal ROM Extremity Extremity Narrative: There is tenderness and swelling over the lateral malleolus and just inferior to it. There is no fifth metatarsal medial or posterior malleoli or tenderness. No fibular head tenderness. No obvious breaks in the skin. Neurovascular appears intact. Neuro oriented x3 and CN's II-XII intact bilaterally Sensorium / Orientation: alert Motor Exam: strength 5/5 throughout Psych mental status grossly normal Mood & Affect: Negative for depressed or tearful Skin no rashes or lesions noted and no wounds MDM MDM MDM Narrative Medical decision making narrative: My depend interpretation of the plain films of the left foot is no acute fracture. My independent interpretation of the plain films of the right ankle with soft tissue swelling with no obvious fracture. Patient will place an air splint plus or minus crutches as needed. Would recommend ice anti-inflammatories. Work note will be given. Follow-up 10 to 14 days if not improved History & Record Review Discussion w/independent historian: Patient Radiography Diagnostic Testing: Clinical Impression(s) from Imaging Studies Ankle X-Ray 02/13/24 09:30 IMPRESSION: Lateral soft tissue swelling. No fracture is seen. Electronically Signed: Gerardo Alamo MD at 10:30 EDT , Foot X-Ray 02/13/24 09:30 IMPRESSION: Normal x-ray examination of the foot. Electronically Signed: Gerardo Alamo MD at 9:50 EDT , Discharge Plan Triage Chief Complaint: Lower Extremity Injury ED Provider: Milton Richards Dx/Rx/DC Orders Prescriptions: No Action omega-3 fatty acids 1,000 mg capsule 1,000 mg PO QDAY metoprolol tartrate 25 MG tablet 25 mg PO DAILY albuterol sulfate 1 INHALER inhaler 2 puff inhalation Q4H PRN PRN (Reason: Wheezing) Qty: 1 0RF dicyclomine 10 MG capsule 20 mg PO Q6H PRN PRN (Reason: abdominal discomfort) Qty: 20 0RF ondansetron [ondansetron] 4 MG tablet 8 mg PO Q8H PRN PRN (Reason: Nausea) Qty: 20 0RF Primary Care Provider: Beto Ferrer Referrals: Beto Ferrer MD [Primary Care Provider] -
--- NOTE | 2024-02-13 09:30 | RAD_ITS ---
STUDY: X-RAY - LEFT ANKLE REASON FOR EXAM: Male, 33 years old. Lateral ankle pain and swelling following injury. TECHNIQUE: 3 view(s) of the ankle. COMPARISON: None. FINDINGS: Normal visualized distal tibia and fibula. Normal medial and lateral malleoli. Normal tibiotalar articulation and ankle mortise. Normal visualized talus and calcaneus. The visualized subtalar, talonavicular, calcaneocuboid and tarsal articulations are normal. Lateral soft tissue swelling. RAD/Ankle min 3 Views IMPRESSION: Lateral soft tissue swelling. No fracture is seen. Electronically Signed: Gerardo Alamo MD at 10:30 EDT ,
--- NOTE | 2024-02-13 09:30 | RAD_ITS ---
STUDY: X-RAY - LEFT FOOT CLINICAL: Male, 33 years old. Pain and swelling following injury. TECHNIQUE: 3 view(s) of the foot. COMPARISON: None. FINDINGS: Normal talus, calcaneus, and tarsal bones. Normal visualized subtalar, talonavicular, calcaneocuboid, tarsal and tarsometatarsal articulations. Normal metatarsi. Normal metatarsophalangeal joint of the great toe. Normal tibial and fibular sesamoid bones. Normal interphalangeal joint of the great toe. Normal phalanges of the great toe. Normal second through fifth metatarsophalangeal joints. Normal interphalangeal joints and phalanges of the lesser toes. The soft tissue structures are unremarkable. RAD/Foot min 3 Views IMPRESSION: Normal x-ray examination of the foot. Electronically Signed: Gerardo Alamo MD at 9:50 EDT ,
== END 2024-02-13 11:04 | disposition home or self-care (01) ==
PROVIDERS: Emergency Provider Emergency Medicine; PCP Family Medicine; Visit Provider Emergency Medicine
DX: S99.912A Unspecified injury of left ankle, initial encounter (principal); Z68.41 Body mass index [BMI] 40.0-44.9, adult; W01.0XXA Fall on same level from slipping, tripping and stumbling without subsequent striking against object, initial encounter; I10 Essential (primary) hypertension; E66.9 Obesity, unspecified; Z79.899 Other long term (current) drug therapy
CPT/HCPCS: 73610; 73630; 99283

== ENCOUNTER 2024-10-28 15:51 | Emergency (ER) | payer OTHER, SELFPAY ==
[2024-10-28] VITALS (15 sets, daily range): BP systolic 117–156; BP diastolic 68–122; PULSE 108–147; RESP 16–31; TEMP 36.5–38.6; O2SAT 93–99; BMI 45.7
--- NOTE | 2024-10-28 16:26 | EDS_ITS ---
HPI History of Present Illness Chief Complaint: Chest Pain Narrative Narrative: Patient is a 34-year-old male with past medical history of hypertension, dyslipidemia who presents to the emergency department with a chief complaint of chest pain. Patient states that he has been sick for about a week and states that he originally went to urgent care and was told to take [id number] stuff. He states that he had symptom improvement the next day however he states that on Monday he noted that it felt like someone is standing on his chest and it was difficult for him to kick a deep breath. 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 Patient denies any history of blood clots. Patient denies any recent sick contacts. He states he is constantly coughing. Patient denies any history of IV drug use, alcohol use, smoking [facility] Medical History Physical exam, pre-employment Carpal tunnel syndrome Dyslipidemia Hypertension Home Medications ?Medication ?Instructions ?Recorded ?Last Taken ?Type metoprolol tartrate 25 mg tablet 25 mg PO DAILY 07/03/20 Unknown History ondansetron 4 mg disintegrating 4 mg PO Q6H PRN nausea and 10/28/24 Unknown Rx tablet vomiting #30 tabs Allergy/AdvReac Type Severity Reaction Status Date / Time No Known Allergies Allergy Verified 10/28/24 15:51 Family History Grandmother Hypertension Diabetes Alzheimers disease Grandfather CAD (coronary artery disease) Hypertension Diabetes Grandfather CVA (cerebral vascular accident) Hypertension Diabetes Father Diabetes Hypertension psychiatry Thyroid disorder Mother Hypertension Thyroid disorder Surgical History History of tonsillectomy Social History household members: significant other Smoking Status: Never smoker second hand exposure: No alcohol intake: never substance use type: does not use caffeine: No what type of physical activity do you participate in: none ROS ROS ED ROS Narrative Constitutional: Denies any fevers, chills, headaches, lightness, dizziness Cardiovascular: Complains of chest pain as noted above denies palpitations Respiratory: Complains of cough and shortness of breath as noted above Abdomen: Denies abdominal pain nausea vomit diarrhea : Denies any urinary symptoms Neurological: Denies any numbness, weakness, tingling Musculoskeletal: Denies any back pain Skin: Denies any rashes or lesions EXAM Physical Exam Narrative Exam Narrative: General: Patient lying in bed rest comfortably did not appear to be acute distress Head: Atraumatic, normocephalic Eyes: PERRL bilaterally, EOMI bilateral, no conjunctival injection noted Neck: Soft, supple, trachea midline Cardiovascular: patient was tachycardic with a regular rhythm no murmurs gallops rubs noted Respiratory: clear to auscultation bilaterally Abdomen: Soft, nondistended, no tenderness palpation Extremities: +5/5 strength noted in the bilateral upper and lower extremities Neurological: Patient was following commands knew that he was at [facility] years 2023 Skin: Warm, dry, intact Const Vital Signs: 10/28/24 15:51 10/28/24 15:53 10/28/24 16:05 Temperature 97.7 F L Temperature Source Oral Pulse Rate 122 H 122 H Respiratory Rate 18 Respiratory Effort Blood Pressure 148/122 H 156/105 H Blood Pressure Mean 130 122 Pulse Ox 98 98 Oxygen Delivery Method Room Air Room Air 10/28/24 16:07 10/28/24 16:28 10/28/24 17:02 Temperature Temperature Source Pulse Rate 116 H Respiratory Rate 18 Respiratory Effort Normal Non-Labored Blood Pressure 144/82 H Blood Pressure Mean 102 Pulse Ox 95 96 Oxygen Delivery Method Room Air Room Air 10/28/24 18:00 10/28/24 19:00 10/28/24 19:50 Temperature Temperature Source Pulse Rate 108 H 119 H 127 H Respiratory Rate 24 H 18 17 Respiratory Effort Blood Pressure 153/82 H 117/102 H Blood Pressure Mean 105 107 Pulse Ox 95 94 94 Oxygen Delivery Method Room Air Room Air Room Air 10/28/24 20:00 10/28/24 20:10 10/28/24 21:00 Temperature 101.4 F H Temperature Source Oral Pulse Rate 121 H 117 H Respiratory Rate 25 H 16 Respiratory Effort Blood Pressure 133/80 H 149/84 H Blood Pressure Mean 97 105 Pulse Ox 93 98 Oxygen Delivery Method Room Air Room Air 10/28/24 21:30 Temperature Temperature Source Pulse Rate 147 H Respiratory Rate 24 H Respiratory Effort Blood Pressure Blood Pressure Mean Pulse Ox 99 Oxygen Delivery Method Room Air MDM MDM MDM Narrative Medical decision making narrative: Patient is a 34-year-old male who presented to the emergency department chief complaint of chest pain and shortness of breath. Patient will have a workup performed here on the differential diagnosis includes but not limited to ACS, pneumonia, pneumothorax, PE, upper respiratory infection secondary to viral etiology. Once workup is obtained reviewed he will be reevaluated. Patient be given IV fluids. Patient CBC reviewed and showed no evidence leukocytosis white blood count normal at 9.5, hemoglobin 15.6, platelet count was noted be 190. Patient sodium normal 138, potassium was 3.8, creatinine normal at 1.09. Patient's troponin was 8 with a delta troponin obtained noted be 8, EKG reviewed and showed evidence sinus tachycardia with a rate of 123 bpm. Patient's D-dimer was noted be normal at 0.27. Patient's chest x-ray was reviewed and independently interpreted by myself and by radiology showed no acute cardiopulmonary processes. Patient was ambulated here in the emergency department and his heart rate increased to the 130s 140s and his oxygen level went down to 91 to 90% on room air. At this point in time we will add on a CTA of his chest. Patient CTA of his chest reviewed and showed suboptimal opacification of pulmonary arteries no gross large central pulmonary emboli identified. Patient did become febrile here in the emergency department and his heart rate increased he was given a gram of Tylenol as well as IV fluids. Patient was reambulated here and his oxygen level stayed in the mid 90s. Repeat abdominal exam was performed at 10:05 PM and patient's abdomen remains benign no tenderness to palpation. On reevaluation the patient he states he is feeling better he is still tachycardic. With shared decision making the patient would like to go home at this point time. Is likely that he has a viral illness and his fever is causing an increase in his heart rate. He is advised to rotate Tylenol and ibuprofen [id number]. He is encouraged to follow-up with his primary care physician and return with worsening symptoms or any concerns. His significant other at bedside is agreeable with this plan as well. All question concerns answered he was discharged home in stable condition. Lab Data Labs: Laboratory Results - last 24 hr 10/28/24 10/28/24 10/28/24 15:59 16:59 18:19 WBC 11.0 9.5 RBC 5.80 5.41 Hgb 16.6 H 15.6 Hct 48.6 45.8 MCV 83.8 84.7 MCH 28.6 28.8 MCHC 34.2 34.1 RDW Std Deviation 42.3 42.8 RDW Coeff of Lucy 14.1 14.2 Plt Count 214 190 MPV 8.8 8.9 Immature Gran % (Auto) 0.700 0.600 Neut % (Auto) 84.5 H 84.9 H Lymph % (Auto) 8.2 L 8.2 L [place] % (Auto) 5.2 5.1 Eos % (Auto) 0.9 0.8 Baso % (Auto) 0.5 0.4 Absolute Neuts (auto) 9.3 H 8.0 H Absolute Lymphs (auto) 0.90 0.78 L Nucleated RBC % 0 0 D-Dimer Quant (PE/DVT) 0.27 Sodium 137 138 Potassium 3.7 3.8 Chloride 106 105 Carbon Dioxide 26.0 28.0 Anion Gap 6 5 BUN 13 14 Creatinine 1.01 1.09 Estim Creat Clear Calc 155.40 144.00 Est GFR (MDRD) Af Amer 110 100 Est GFR (MDRD) Non-Af 91 83 BUN/Creatinine Ratio 12.9 12.8 Glucose 108 H 107 H Calcium 9.0 8.7 Troponin I High Sens 8 8 8 Radiography Diagnostic Testing: Clinical Impression(s) from Imaging Studies Chest X-Ray 10/28/24 16:35 IMPRESSION: No radiographic evidence of acute cardiopulmonary disease. Electronically Signed: Floyd Mitchell MD at 16:49 EST , Chest CTA 10/28/24 18:35 IMPRESSION: Suboptimal opacification of pulmonary arteries. No gross large central pulmonary emboli are identified. Electronically Signed: Floyd Mitchell MD at 19:36 EST , Discharge Plan Triage Chief Complaint: Chest Pain ED Provider: Roc Godwin Dx/Rx/DC Orders Clinical Impression: Tachycardia, Upper respiratory infection, viral, Fever Prescriptions: New ondansetron 4 mg tablet,disintegrating 4 mg PO Q6H PRN (Reason: nausea and vomiting) Qty: 30 0RF No Action metoprolol tartrate 25 MG tablet 25 mg PO DAILY Primary Care Provider: Beto Ferrer Referrals: Beto Ferrer MD [Primary Care Provider] - Activity Restrictions/Additional Instructions: Rotate Tylenol and ibuprofen [id number] for fever control. Ensure adequate hydration. Return with worsening symptoms or other concerns. Your CT of your chest did not show any evidence of blood clots. Return with worsening symptoms or other concerns otherwise follow-up with your doctor in outpatient setting Print Language: [place] Disposition Disposition: Home, Self Care
--- NOTE | 2024-10-28 16:26 | EKG12_ITS ---
Test Reason : Blood Pressure : */* mmHG Vent. Rate : 123 BPM Atrial Rate : 123 BPM P-R Int : 164 ms QRS Dur : 94 ms QT Int : 298 ms P-R-T Axes : 48 23 37 degrees QTcB Int : 426 ms Sinus tachycardia Otherwise normal ECG Confirmed by JERALD JASSO, CHRISTEL ([id number]), art editor ERNESTINE RUBALCAVA ([id number]) on 10/29/2024 8:03:11 AM Referred By: Confirmed By: CHRISTEL MARQUES MD
[2024-10-28 16:32] LABS: Absolute Neutrophil Count 9.3 X10^3/uL (2.0-7.7); Basophil# 0.05 X10^3/uL; Basophil% 0.5 % (0-1); Eosinophils% 0.9 % (0-5); Hematocrit 48.6 % (40-54); Hemoglobin 16.6 g/dL (13.0-16.5); Lymphocyte % 8.2 % (19-41); Mean Corp Hgb Conc 34.2 g/dL (32-36); Mean Corpuscular Hgb 28.6 pg (27.0-32.0); Mean Corpuscular Volume 83.8 fL (80-94); Mean Platelet Vol. 8.8 fl (6.2-12.0); Monocyte# 0.57 X10^3/uL; Monocyte% 5.2 % (0-10); NRBC Flagged by Analyzer 0 % (0-5); Neutrophil # 9.27 X10^3/uL (2.7-7.7); Neutrophil % 84.5 % (47-70); Platelet Count 214 K/mm3 (150-450); RBC Distribution Width CV 14.1 % (11.6-14.6); RBC Distribution Width SD 42.3 fl (35.1-43.9)
--- NOTE | 2024-10-28 16:35 | RAD_ITS ---
EXAM: XR CHEST, 2 VIEWS CLINICAL INDICATION: chest pain TECHNIQUE: Frontal and lateral views of the chest. COMPARISON: 08/06/2020 FINDINGS: LUNGS AND PLEURAL SPACES: Unremarkable. No consolidation or edema. No pneumothorax. No effusion. HEART: Unremarkable. Cardiac silhouette not enlarged. MEDIASTINUM: Central airways and mediastinal contour are unremarkable. BONES/JOINTS: Unremarkable. No acute fracture. SOFT TISSUES: Unremarkable. RAD/Chest PA and Lateral IMPRESSION: No radiographic evidence of acute cardiopulmonary disease. Electronically Signed: Floyd Mitchell MD at 16:49 EST ,
[2024-10-28 16:37] LABS: Anion Gap 6 (5-15); BUN 13 mg/dL (7-18); BUN/Creat Ratio 12.9 RATIO (10-20); Chloride 106 mmol/L (98-107); Creatinine, Serum 1.01 mg/dL (0.70-1.30); EST Glomerular Filtration Rate 91 mL/min (>60); Est Glom Filt Rate - Afr Amer 110 mL/min (>60); Glucose 108 mg/dL (74-106); Potassium 3.7 mmol/L (3.5-5.1); Sodium Level 137 mmol/L (136-145); Troponin-I HS (w/2H Reflex) 8 pg/mL (3.0-78.0)
[2024-10-28 17:12] LABS: Absolute Lymphocyte Count 0.78 X10^3/uL (0.83-4.51); Basophil# 0.04 X10^3/uL; Basophil% 0.4 % (0-1); Eosinophil# 0.08 X10^3/uL; Eosinophils% 0.8 % (0-5); Hematocrit 45.8 % (40-54); Hemoglobin 15.6 g/dL (13.0-16.5); Lymphocyte # 0.78 X10^3/ul (0.83-4.51); Lymphocyte % 8.2 % (19-41); Mean Corp Hgb Conc 34.1 g/dL (32-36); Mean Corpuscular Hgb 28.8 pg (27.0-32.0); Mean Corpuscular Volume 84.7 fL (80-94); Mean Platelet Vol. 8.9 fl (6.2-12.0); Monocyte# 0.48 X10^3/uL; Monocyte% 5.1 % (0-10); NRBC Flagged by Analyzer 0 % (0-5); Neutrophil # 8.03 X10^3/uL (2.7-7.7); Neutrophil % 84.9 % (47-70); Platelet Count 190 K/mm3 (150-450); RBC Distribution Width CV 14.2 % (11.6-14.6); RBC Distribution Width SD 42.8 fl (35.1-43.9); Red Blood Count 5.41 M/mm3 (4.6-6.2); White Blood Count 9.5 K/mm3 (4.4-11.0)
[2024-10-28 17:12] LABS: D-Dimer Quantitative (DVT/PE) 0.27 FEU/ug/m (0.27-0.49)
[2024-10-28 17:29] LABS: Anion Gap 5 (5-15); BUN 14 mg/dL (7-18); BUN/Creat Ratio 12.8 RATIO (10-20); Calcium,Total 8.7 mg/dL (8.5-10.1); Chloride 105 mmol/L (98-107); Creatinine, Serum 1.09 mg/dL (0.70-1.30); EST Glomerular Filtration Rate 83 mL/min (>60); Est Glom Filt Rate - Afr Amer 100 mL/min (>60); Glucose 107 mg/dL (74-106); Potassium 3.8 mmol/L (3.5-5.1); Sodium Level 138 mmol/L (136-145); Troponin-I HS 8 pg/mL (3.0-78.0)
[2024-10-28 18:09] LABS: Reflex Troponin-HS? (from REC) Y
--- NOTE | 2024-10-28 18:35 | CT_ITS ---
EXAM: CT ANGIOGRAPHY CHEST WITHOUT AND WITH INTRAVENOUS CONTRAST CLINICAL INDICATION: sob TECHNIQUE: Helically acquired angiography images were obtained of the chest without and with intravenous contrast. This CT exam was performed using one or more of the following dose reduction techniques: automated exposure control, adjustment of the mA and/or kV according to patient size, and/or use of iterative reconstruction technique. MIP reconstructed images were created and reviewed. CONTRAST: IV 100mL [id number] COMPARISON: No relevant prior studies available. FINDINGS: PULMONARY ARTERIES: There is suboptimal opacification of pulmonary arteries. The pulmonary trunk or left main pulmonary arteries show no obvious filling defects. The segmental pulmonary arteries show no obvious filling defects. Normal in caliber. AORTA: Unremarkable. Normal in caliber. No evidence of dissection. GREAT VESSELS OF AORTIC ARCH: Unremarkable. Normal in caliber. No evidence of dissection. LUNGS AND PLEURAL SPACES: Subsegmental and peripheral vessels are poorly opacified. No mass. No pleural effusion or thickening. No pneumothorax. HEART: Unremarkable. Heart size is normal. No pericardial effusion. No significant coronary artery calcifications. MEDIASTINUM: Unremarkable. No mediastinal or hilar adenopathy. Esophagus is unremarkable. No hiatal hernia. THYROID: Unremarkable. No thyroid lesions. BONES/JOINTS: Unremarkable. No suspicious lytic or blastic abnormality. CT/CTA Chest W/WO Contrast IMPRESSION: Suboptimal opacification of pulmonary arteries. No gross large central pulmonary emboli are identified. Electronically Signed: Floyd Mitchell MD at 19:36 EST ,
[2024-10-28 18:53] LABS: Troponin-I HS 8 pg/mL (3.0-78.0)
[2024-10-28] MEDS: 0.9% Normal Saline (1000mL) 1,000 ML 999 ML IV (20:07)
[2024-10-28] MEDS: Acetaminophen 500 MG Tablet 1000 MG PO (21:10)
== END 2024-10-28 22:57 | disposition home or self-care (01) ==
PROVIDERS: Emergency Provider Emergency Medicine; PCP Family Medicine; Visit Provider Emergency Medicine
DX: R00.0 Tachycardia, unspecified (principal); J06.9 Acute upper respiratory infection, unspecified; I10 Essential (primary) hypertension; Z79.899 Other long term (current) drug therapy
CPT/HCPCS: 71046; 71275; 80048; 84484; 85025; 85379; 87631; 93005; 96360; 99284; Q9967; A4216